=== PATIENT | male | born 1960 | race Caucasian/White ===

== ENCOUNTER 2021-10-06 07:52 | Outpatient (CLI) | payer BC, SELFPAY ==
[2021-10-06 11:59] LABS: Albumin* 4.5 g/dL (3.3-5.0)
[2021-10-06 12:00] LABS: Chloride* 105 mmol/L (96-114); Potassium* 4.9 mmol/L (3.6-5.1); Sodium* 139 mmol/L (135-149)
[2021-10-06 12:02] LABS: Bilirubin Total* 0.5 mg/dL (0.1-1.5); Carbon Dioxide* 27 mmol/L (20-32); Cholesterol* 143 mg/dL (90-199); Creatinine* 0.8 mg/dL (0.5-1.5); Estimated Glomerular Filt Rate 101 ml/min; Total Protein* 6.7 g/dL (6.0-8.3)
[2021-10-06 12:03] LABS: Alanine Aminotransferase* 50 U/L (4-50); Alkaline Phosphatase* 75 U/L (40-150); Aspartate Amino Transferase* 48 U/L (12-35); Blood Urea Nitrogen* 12 mg/dL (7-30); Calcium* 9.3 mg/dL (8.4-10.6); Glucose* 128 mg/dL (60-115); HDL Cholesterol* 46 mg/dL (>=40); LDL Cholesterol Calculated 77 mg/dL (<100); Triglycerides* 102 mg/dL (40-149)
== END 2021-10-06 07:53 | disposition home or self-care (01) ==
PROVIDERS: PCP Family Medicine; Visit Provider Family Medicine
DX: E78.5 Hyperlipidemia, unspecified (principal); R73.01 Impaired fasting glucose
CPT/HCPCS: 80053; 80061

== ENCOUNTER 2023-01-18 08:28 | Outpatient (CLI) | payer BC, SELFPAY | END 2023-01-18 08:29 | disposition home or self-care (01) | LOC: NFLDREF 20:50 | PROVIDERS: PCP Family Medicine; Referring Provider Family Medicine; Visit Provider Internal Medicine | DX: R30.0 Dysuria (principal); R31.9 Hematuria, unspecified | CPT/HCPCS: 87086 ==

== ENCOUNTER 2023-02-03 07:56 | Outpatient (CLI) | payer BC, SELFPAY | END 2023-02-03 07:57 | disposition home or self-care (01) | LOC: NFLDREF 02-10 07:37 | PROVIDERS: PCP Family Medicine; Referring Provider Family Medicine; Visit Provider Family Medicine | DX: E78.5 Hyperlipidemia, unspecified (principal); Z12.5 Encounter for screening for malignant neoplasm of prostate; Z13.6 Encounter for screening for cardiovascular disorders | CPT/HCPCS: 80053; 80061; 84153 ==

== ENCOUNTER 2023-03-24 07:45 | Outpatient (CLI) | payer BC, SELFPAY | END 2023-03-24 07:46 | disposition home or self-care (01) | LOC: NFLDREF 03-29 21:07 | PROVIDERS: PCP Family Medicine; Referring Provider Family Medicine; Visit Provider Family Medicine | DX: R73.01 Impaired fasting glucose (principal) | CPT/HCPCS: 82947 ==

== ENCOUNTER 2024-01-18 07:16 | Emergency (ER) | payer BC, SELFPAY ==
[2024-01-18 07:21] VITALS: BP 149/101; PULSE 70; RESP 18; TEMP 36.6; O2SAT 100; BMI 34.5
--- NOTE | 2024-01-18 07:29 | ED_ITS ---
HPI - Chest Pain General Time Seen by Provider: 07:30 Date Seen: 01/18/24 Chief Complaint: Chest Pain Stated Complaint: sharp burning chest pain, LT arm tingling numbness Time Seen by Provider: 01/18/24 07:29 Source: patient, RN notes reviewed and old records reviewed Mode of arrival: ambulatory Limitations: no limitations History of Present Illness HPI narrative: 63-year-old male who comes in today with chest pain. Patient notes off and on chest pain over the past week. Today also some pain in left shoulder blade area and left arm numbness which is new. Related Data Home Medications ?Medication ?Instructions ?Recorded ?Confirmed aspirin 81 mg tablet,delayed 81 mg PO QDAY 10/20/21 01/18/24 release Previous Rx's ?Medication ?Instructions ?Recorded lisinopril 10 mg tablet 10 mg PO QDAY #90 tabs 03/27/23 rosuvastatin 40 mg tablet 40 mg PO .HS #90 tabs 03/27/23 sildenafil 50 mg tablet 25 - 100 mg (0.5 - 2 x 50 mg) PO 03/27/23 QDAY PRN sexual activity #30 tabs niacin 500 mg tablet,extended 500 mg PO BID #180 tabs 05/19/23 release 24 hr Allergies Allergy/AdvReac Type Severity Reaction Status Date / Time codeine Allergy Mild behavioral Verified 01/18/24 07:26 changes diltiazem Allergy Mild Hives Verified 01/18/24 07:26 [facility] Medical History (Updated 01/18/24 @ 07:59 by Te Victoria MD) Skin cancer ?C44.90 - Unspecified malignant neoplasm of skin, unspecified (ICD-10) Hematuria ?R31.9 - Hematuria, unspecified (ICD-10) Dysuria ?R30.0 - Dysuria (ICD-10) History of squamous cell carcinoma ?Z85.89 - Personal history of malignant neoplasm of other organs and systems (ICD-10) History of sarcoidosis ?Z86.2 - Personal history of diseases of the blood and blood-forming organs and certain disorders involving the immune mechanism (ICD-10) History of hepatitis B virus infection ?Z86.19 - Personal history of other infectious and parasitic diseases (ICD- 10) History of basal cell carcinoma ?Z85.828 - Personal history of other malignant neoplasm of skin (ICD-10) Surgical History (Updated 10/01/21 @ 13:47 by Terry Wu) History of colonoscopy ?Z98.890 - Other specified postprocedural states (ICD-10) Social History (Updated 03/24/23 @ 09:36 by Tanya Nicholas ~ [facility]) What is your current living situation?: I presently have a place to live Problems where you live: declined to answer In the past 12 months, utilities in danger of being shut off: no In past 12 months, lack of transportation kept you from medical appts, meetings, work, or getting things needed for daily living: no In the past 12 mos, have been you worried that your food would run out before you had money to buy more?: declined to answer In the past 12 mos, the food you bought just didn't last and you didn't have money to buy more?: declined to answer Smoking Status: Never smoker How often does anyone, including family, friends and others, physically hurt you : decline to answer How often does anyone, including family, friends and others, insult or talk down to you: decline to answer How often does anyone, including family, friends and others, threaten you with harm: decline to answer How often does anyone, including family, friends and others, scream or curse at you: decline to answer Little interest or pleasure in doing things: not at all Feeling down, depressed, or hopeless: not at all Exam Narrative Exam Narrative: General: Well-developed and well-nourished, no acute distress Head: Atraumatic and normocephalic Eyes: Pupils are equal reactive, extraocular motions intact, conjunctiva clear ENT: External nose and ears are normal, posterior pharynx without erythema or exudate Neck: No midline cervical tenderness, full spontaneous range of motion the neck, trachea midline, no adenopathy Heart: Regular rate and rhythm no murmurs or thrills Lungs: Clear to auscultation bilaterally without wheezes or crackles Abdomen: Soft, nontender, nondistended with active bowel sounds Musculoskeletal: No tenderness, deformity, or edema Neurologic: Awake, alert, and oriented x3, no gross focal neurologic deficits, cranial nerves intact as tested Psych: Mood and affect are appropriate Skin: No rashes Const Vital Signs, click to edit/add: Vital Signs - 24 hr 01/18/24 07:21 Temperature 98 F Pulse Rate [Right Pulse Oximeter] 70 Respiratory Rate 18 Blood Pressure [Right Upper Arm] 149/101 H Pulse Oximetry 100 Oxygen Delivery Method Room Air Course Course ED Course: Patient seen examined, reviewed prior primary care office note from July 2023 w [facility] was for dysuria, patient was treated with ciprofloxacin at that time. Patient presents today with intermittent left-sided chest pain which he describes as sharp and like a pinch or burning that last for secondary to, has been going off and on for the last week. No associated shortness of breath, nausea, vomiting. Not associated with activity or breathing and patient has no cough. Today noticed pain in the left shoulder blade area and some numbness the left anterior arm going to the hand which made him come the emergency department. No falls or injury. No weakness. On exam here patient is finally stable, unable to reproduce chest pain. No trapezius tenderness, strength and sensation of the left arm intact. Chest pain is atypical for acute coronary syndrome, could be more pleuritic, labs including D-dimer ordered. Shoulder pain with tingling in the arm in a radicular pattern most consistent with cervical or thoracic radiculopathy. Chest x-ray ordered to evaluate for intra thoracic pathology as well. If this is negative, patient be discharged and have outpatient follow-up, consult physical therapy if symptoms persist. EKG independently interpreted by me performed at 7:30 a.m. demonstrates sinus rhythm rate 69, no acute ST elevations or depressions, normal intervals, normal axis, QTC 441, OH 136, no prior for comparison. Signout to oncoming provider at change of shift pending labs and disposition. Vital Signs Vital signs: Initial Vital Signs Temperature 98 F 01/18/24 07:21 Temperature Source Temporal Artery Scan 01/18/24 07:21 Pulse Rate 70 01/18/24 07:21 Pulse Rhythm Regular 01/18/24 07:21 Pulse Strength 3+ Normal 01/18/24 07:21 Respiratory Rate 18 01/18/24 07:21 Blood Pressure 149/101 H 01/18/24 07:21 Blood Pressure Mean 117 H 01/18/24 07:21 Blood Pressure Position Sitting 01/18/24 07:21 Pulse Oximetry 100 01/18/24 07:21 Oxygen Delivery Method Room Air 01/18/24 07:21 Vital Signs Temperature 98 F 01/18/24 07:21 Pulse Rate 70 01/18/24 07:21 Respiratory Rate 18 01/18/24 07:21 Blood Pressure 149/101 H 01/18/24 07:21 Pulse Oximetry 100 01/18/24 07:21 Oxygen Delivery Method Room Air 01/18/24 07:21 Temperature 98 F 01/18/24 07:21 Pulse Rate 70 01/18/24 07:21 Respiratory Rate 18 01/18/24 07:21 Blood Pressure 149/101 H 01/18/24 07:21 Pulse Oximetry 100 01/18/24 07:21 Oxygen Delivery Method Room Air 01/18/24 07:21 Discharge Plan Discharge Clinical Impression: Atypical chest pain, Cervical radiculopathy Condition: Stable Instructions: Cervical Radiculopathy (ED), Noncardiac Chest Pain (ED) Prescriptions: No Action aspirin 81 mg tablet,delayed release (DR/EC) 81 mg PO QDAY lisinopril 10 mg tablet 10 mg PO QDAY Qty: 90 3RF rosuvastatin 40 mg tablet 40 mg PO .HS Qty: 90 3RF sildenafil 50 mg tablet 25 - 100 mg PO QDAY PRN (Reason: sexual activity) Qty: 30 11RF Rx Instructions: administer 30 minutes to 4 hours before activity niacin 500 mg tablet extended release 24 hr 500 mg PO BID Qty: 180 0RF Follow Up/Referrals: Cristian Cordero MD [Primary Care Provider] -
--- NOTE | 2024-01-18 07:40 | XR_ITS ---
Patient: GM KAY Facility:?[facility] Patient ID:?[id number] Site Patient ID:?[id number]. Site :?[id number] Study:?XRay-Chest 2 VIEW-01/18/2024 7:52:57 AM Ordering Physician:Germán Tiwari Final Report: INDICATION: Chest pain COMPARISON: None TECHNIQUE: PA and lateral views of the chest were acquired FINDINGS: TUBES AND LINES: None. HEART AND MEDIASTINUM: The heart size is normal. The mediastinal contour appears normal for patient age. LUNGS AND PLEURAL SPACES: The lungs appear normal.The pleural spaces are unremarkable. OSSEOUS STRUCTURES: Age-appropriate appearance. No acute focal finding. IMPRESSION: No evidence of active pulmonary disease. Dictated by Nicolas Villatoro MD @ 01/18/2024 7:55:30 AM Signed by:?Nicolas Villatoro MD @01/18/2024 7:55:30 AM (Electronic Signature)
[2024-01-18 08:00] VITALS: BP 138/69
[2024-01-18 08:10] LABS: Basophils Absolute Auto 0.03 K/uL (0.00-0.30); Basophils Percent Auto 0.6 % (0.0-3.0); Eosinophils Absolute Auto 0.12 K/uL (0.00-0.50); Eosinophils Percent Auto 2.2 % (0.0-7.0); Hemoglobin* 13.5 gm/dL (13.5-17.5); Immature Granulocytes Abs Auto 0.01 K/uL (0.00-0.30); Immature Granulocytes Pct Auto 0.2 %; Lymphocytes Absolute Auto 1.71 K/uL (0.90-2.90); Lymphocytes Percent Auto 31.5 % (20-44); Mean Corpuscular HGB Conc 34 gm/dL (32-36); Mean Corpuscular Hemoglobin 31 pg (26-34); Mean Corpuscular Volume 92 fL (80-100); Monocytes Percent Auto 12.5 % (0.0-11.0); Neutrophils Absolute Auto 2.87 K/uL (1.7-7.0); Platelet Count* 157 K/uL (140-440); RDW Coefficient of Variation % 11.9 % (11.5-15.5); Red Blood Count 4.36 m/uL (4.30-5.90); White Blood Count* 5.42 K/uL (4.50-11.00)
--- OUTSIDE RECORDS SUMMARY | 2024-01-18 08:10 | XMS_ITS | Clinical Summary ---
Author Organization [facility] Address [place], [place] [address] Care Team Providers Care Supervisor Airplane Flight Attendant Name Role Phone Cristian Cordero MD Primary Care Provider [phone] Allergies No known active allergies Medications Medication Sig Dispensed Refills Start Date End Date Status lisinopriL (PRINIVIL; ZESTRIL) 10 mg tablet 10 mg. 08/02/2019 Act kera rosuvastatin (CRESTOR) 20 mg tablet 20 mg. 08/02/2019 Active niacinamide 500 mg tablet 500 mg. 09/10/2019 Active sildenafiL, pulm.hypertension, (REVATIO) 20 mg tablet 20 mg. 09/09/2019 Ac tive aspirin (ECOTRIN) 81 mg enteric coated tablet Take 1 tablet by mouth once daily with a meal. 0 09/17/2019 Active Active Problems Problem Noted Date Diagnosed Date Essential (primary) hypertension 09/18/2019 Hyperlipidemia, unspecified 09/18/2019 History of basal cell carcinoma (BCC) of skin Immunizations Name Administration Dates Next Due Measles 11/06/1979,07/27/1976 Oral Polio Vaccine 10/09/1974 Pneumococcal Poly,23-Valent (Pneumovax) 11/15/19 18 Tdap 05/03/2010 Zoster (Shingrix-RZV, recombinant) 01/28/2019, Family History Medical History Relation Name Comments Diabetes Brother 1 Diabetes Brother 2 Cancer Father Esophageal cancer Mother Hypertension Mother Relation Name Status Comments Brother 1 Brother 2 Father Mother Social History Tobacco Use Types Packs/Day Years Used Date Smoking Tobacco: Never Smokeless Tobacco: Never Alcohol Use Standard Drinks/Week Comments Yes 0 (1 standard drink = 0.6 oz pur e alcohol) 11 PHQ-2 Answer Date Recorded PHQ-2 TOTAL SCORE 0 09/17/2019 Social Connections Answer Date Recorded Frequency of Communication with Friends and Fami ly Not on file 03/20/2021 Financial Resource Strain Answer Date R ecorded Difficulty of Paying Living Expenses Not on file 03/20/2021 Difficulty of Paying Living Expenses Not on file 03/20/2021 Sex and Gender Information Value Date Recorded Sex Assigned at Not on file Gender Identity Not on file Sexual Orientation Not on file Obstetrics History Last Filed Vital Signs Vital Sign Reading Time Taken Comments Blood Pressure 116/80 09/18/2019 8:12 AM CDT Pulse 72 09/18/2019 8:12 AM CDT Temperature - - Respiratory Rate - - Oxygen Saturation - - Inhaled Oxygen Concentration - - Weight 93.4 kg (206 lb) 09/18/2019 8:12 AM CDT Height 169 cm (5' 6.54) 09/18/2019 8:12 AM CDT Body Mass Index 32.72 09/18/2019 8:12 AM CDT Plan of Treatment Health Maintenance Due Date Last Done Comments Colonoscopy through age 75 2006 Lipids for age 45-75 2006 Tetanus booster 05/03/2020 05/03/2010 BMI (ht and wt on same day) for age 18+ 09/17/2020 09/18/2019 Depression screening for age 12+ 09/17/2020 09/18/2019, 09/17/2019 COVID-19 vaccine series (2023- season) 2023 Influenza for age 50-64 11/19/2023 Tdap Completed 05/03/2010 Pneumococcal series for age 6-64 Aged Out 11/14/2017 No longer eligible b ased on patient's age to complete this topic Zoster (shingles) series for age 50+ Completed 01/28/2019, 11/14/2017 Hepatitis C screening for ag e 18-79 Completed 09/18/2019 HIV for age 15-65 Completed 11/26/2019, 09/18/2019 Procedures Procedure Name Priority Date/Time Associated Diagnosis Comments ANTI HIV 1/2 Routine 11/26/2019 9:56 AM CDT Routine screening for STI (sexually transmitted infection) ANTI HCV Routine 09/18/2019 8:50 AM CDT Routine screening for STI (sexually transmitted infection) from Last 3 Months or Most Recently Relevant to Health Maintenance Results * ANTI HIV 1/2 (11/26/2019 9:56 AM CDT) HIV-1/HIV-2 ANTIBODY Non-Reacti ve Non-Reacti ve 11/26/2019 8:52 PM CDT [facility] Comment:HIV-1 p24 and HIV-1/ HIV-2 Ab not detected. Blood BLOOD SPECIMEN / Unknown Venipuncture / Unknown 11/26/2019 9:56 AM CDT 11/26/2019 9:56 AM CDT Derick Heard MD [facility] [address] [place] [address], * ANTI HCV (09/18/2019 8:50 AM CDT) HEPATITIS C ANTIBODY Non-React kera Non-React kera 09/18/2019 2:14 PM CDT [facility] Comment:Antibodies to HCV no t detected; does not exclude the possibility of exposure to HCV. Blood BLOOD SPECIMEN / Unknown Venipuncture / Unknown 09/18/2019 8:50 AM CDT 09/18/2019 8:50 AM CDT Derick Heard MD [facility] [address] [place] [address], from Last 3 Months or Most Recently Relevant to Health Maintenance Care Teams Supervisor Airplane Flight Attendant Relationship Specialty Start Date End Date Cristian Cordero MD [address] [place] [id number] PCP - General Family Practice 09/18/19
--- OUTSIDE RECORDS SUMMARY | 2024-01-18 08:10 | XMS_ITS | Clinical Summary ---
Author Organization [employer] Address [address] [place] [phone] Phone Care Team Providers Care Boardinghouse Keeper Name Role Phone Unavailable Primary Care Provider Unavailabl e Source Comments [employer] is fully rolled out on [employer]. Last update 08/22/08.[employer] Allergies Active Allergy Reactions Criticality Noted Date Comments Amoxicillin-Pot Clavulanate Rash 05/07/19 10 PT thinks his reaction was to another medication not this one. Morphine And Codeine Rash Medium 02/11/2009 Medications * Be aware that medications may not be up to date as of this document. Always verify current medications with patient. Medication Sig Dispensed Refills Start Date End Date Status lisinopril (PRINIVIL; ZESTRIL) 5 mg oral tablet Take 1 tablet (5 mg) by mouth at bedtime. 3 10/04/2017 Active rosuvastatin (CRESTOR) 20 mg oral tablet Take 1 tablet (20 mg) by mouth daily. 0 10/19/2017 Active Cholecalciferol (VITAMIN D ORAL) Take by mouth. Acti ve aspirin (ASA EC) 81 mg oral tablet Take 81 mg by mouth daily. Active sildenafil (REVATIO) 20 mg oral tablet 40-100 MG PO DAILY PRN Take 30-60 min prior to planned sexual activity. 07/24/2019 Active niacinamide (DAWNA-ON NIACINAMIDE) 500 mg oral tablet Take 1 tablet (500 mg) by mouth twice daily. 01/26/2023 Active Active Problems No known active problems Social History Tobacco Use Types Packs/Day Years Used Date Smoking Tobacco: Never Smokeless Tobacco: Never Alcohol Use Standard Drinks/Week Comments Yes 12.5 (1 standard drink = 0.6 oz pure alcohol) Sex and Gender Information Value Date Recorded Sex Assigned at Male 06/20/2018 12:01 PM CDT Gender Identity Male 06/20/2018 12:01 PM CDT Sexual Orientation Howard 10/21/2021 9: 17 PM CDT Plan of Treatment Health Maintenance Due Date Last Done Comments CT Colonography 1960 Colonoscopy 1960 Colorectal Cancer Screening 1960 Dental Oral Exam 1960 Dental Prophylaxis 1960 Dental X-Ray: Bitewings 1961 FIT/Cologuard 1961 Hepatitis C Screening 1960 Sigmoidoscopy 1961 iFOB/FIT 1961 Lipid Screening 1962 Periodontal Maintenance 08/06/1975 PREVENTATIVE VISIT 08/06/1979 HEALTH MAINTENANCE PROTOCOL 1980 Imm: DTaP/Tdap (3 - Td or Tdap) 04/22/2022 10/20/2021, 05/03/2010 Imm: COVID-19 ( season) 2023 10/01/2021, 02/08/2021, 04/20/2020, Additional history exists Imm: Flu (#1) 11/19/2023 01/05/2021 Imm: Pneumonia Peds or At-Risk less than 65 years Aged Out 11/14/2017 No longer prema gible based on patient's age to complete this topic Imm: Zoster Completed 01/28/2019, 11/14/2017 HIV Screening Completed 02/02/2023, 06/2021, 01/15/2020, Additional history exists Imm: HPV Aged Out No longer eligi ble based on patient's age to complete this topic Imm: HepA Aged Out No longer eligi ble based on patient's age to complete this topic Imm: HepB Aged Out No longer eligi ble based on patient's age to complete this topic Imm: Hib Aged Out No longer eligi ble based on patient's age to complete this topic Imm: Meningitis Aged Out No longer el igible based on patient's age to complete this topic Procedures Procedure Name Priority Date/Time Associated Diagnosis Comments HIV 1 AND HIV 2 SCREEN Routine 02/02/2023 Screening for HIV (human immunodeficiency virus) from Last 3 Months or Most Recently Relevant to Health Maintenance Results * HIV 1 AND HIV 2 SCREEN (02/02/2023) HIV1&2 Nonreactive Nonreactive [facility] Blood specimen (specimen) 02/02/2023 Katelin Devine APRN, [employer] [facility] [address] [place] [address] from Last 3 Months or Most Recently Relevant to Health Maintenance
--- OUTSIDE RECORDS SUMMARY | 2024-01-18 08:10 | XMS_ITS | Referral Summary ---
Author Organization [employer] Address [address] [place] [id number] Phone Care Team Providers Care Shoe Dyer Name Role Phone Unavailable Primary Care Provider Unavailabl e Source Comments [employer] [facility] is fully rolled out on [employer]. Last update 08/22/08.[employer] Allergies Active Allergy Reactions Criticality Noted Date [...] 9: 17 PM CDT Plan of Treatment Not on file Procedures Procedure Name Priority Date/Time Associated Diagnosis Comments HIV 1 AND HIV 2 SCREEN Routine 02/02/2023 Screening for HIV (human immunodeficiency virus) from Last 3 Months or Most Recently Relevant to Health Maintenance Results * HIV 1 AND HIV 2 SCREEN (02/02/2023) HIV1&2 Nonreactive Nonreactive [facility] Blood specimen (specimen) 02/02/2023 Katelin Devine APRN, DIGITAL ASSET MANAGER LAB[facility]AT[facility] [address] [place] [address] from Last 3 Months or Most Recently Relevant to Health Maintenance
[2024-01-18 08:12] LABS: Slide Review Reflex No
[2024-01-18 08:24] LABS: Chloride* 104 mmol/L (96-114); Potassium* 4.1 mmol/L (3.6-5.1); Sodium* 136 mmol/L (135-149)
[2024-01-18 08:27] LABS: Anion Gap 8 mEq/L (7-15); Blood Urea Nitrogen* 20 mg/dL (7-30); Carbon Dioxide* 24 mmol/L (20-32); Creatinine* 0.6 mg/dL (0.5-1.5); Est. Creatinine Clearance* 71.61; Estimated Glomerular Filt Rate 109 ml/min; Glucose* 127 mg/dL (60-115)
[2024-01-18 08:28] LABS: Magnesium* 1.9 mg/dL (1.5-2.6)
[2024-01-18 08:29] LABS: D Dimer Quantitative* 0.38 ug/ml (0.00-0.50)
== END 2024-01-18 09:01 | disposition home or self-care (01) ==
PROVIDERS: Emergency Provider Family Medicine; PCP Family Medicine
DX: R07.9 Chest pain, unspecified (principal); M54.12 Radiculopathy, cervical region
CPT/HCPCS: 36415; 71046; 80048; 83735; 84484; 85025; 85379; 93005; 99284

== ENCOUNTER 2024-03-19 06:32 | Outpatient (CLI) | payer BC, SELFPAY ==
--- NOTE | 2024-03-19 08:01 | W.ANESCHARGE ---
Anesthesia Charges Start Date/Time Anesthesia Start Date: 03/19/24 Anesthesia Start Time: 07:25 Stop Date/Time Anesthesia Stop Date: 03/19/24 Anesthesia Stop Time: 07:57
== END 2024-03-19 06:33 | disposition home or self-care (01) ==
LOC: OP CLINIC 06:33
PROVIDERS: PCP Family Medicine; Visit Provider Surgery
DX: Z12.11 Encounter for screening for malignant neoplasm of colon (principal); D12.3 Benign neoplasm of transverse colon; D12.8 Benign neoplasm of rectum; K57.30 Diverticulosis of large intestine without perforation or abscess without bleeding; Z86.0100 Personal history of colon polyps, unspecified
CPT/HCPCS: 00811; 45385; 88305; J2405; J2704

== ENCOUNTER 2024-09-19 07:29 | Outpatient (CLI) | payer BC, SELFPAY | END 2024-09-19 07:30 | disposition home or self-care (01) | LOC: NFLDREF 09-22 07:04 | PROVIDERS: PCP Family Medicine; Referring Provider Family Medicine; Visit Provider Family Medicine | DX: I10 Essential (primary) hypertension (principal); E78.5 Hyperlipidemia, unspecified; R73.03 Prediabetes; Z12.5 Encounter for screening for malignant neoplasm of prostate | CPT/HCPCS: 80053; 80061; 82043; 82570; G0103 ==

== ENCOUNTER 2025-02-24 08:06 | Emergency (ER) | payer OTHER, SELFPAY ==
[2025-02-24] VITALS (17 sets, daily range): BP systolic 108–146; BP diastolic 75–96; PULSE 66–74; RESP 9–25; TEMP 36.5; O2SAT 94–99; BMI 29.8
--- NOTE | 2025-02-24 08:10 | ED.GENADULT ---
HPI - General Adult General Date Seen: 02/24/25 Chief complaint: Arrhythmia/Palpitations Stated complaint: Racing heartrate Time Seen by Provider: 02/24/25 08:10 History of Present Illness HPI narrative: 64-year-old male with a history of hypertension, hyperlipidemia, basal cell carcinoma, ED, and current diagnosis is UTI ( on Cipro since Monday). He presents to the ER today with palpitations and dizziness. He notes that he has had intermittent palpitations that happen sporadically for over the test tender 20 years. It sounds like he has had some initial evaluations for them and his doctors told him that when the palpitations have been that he should just bear down. Typically the palpitations are infrequent, happening once every few weeks and tender to be very brief, lasting only a couple of seconds. He does recall that he apparently did have an EKG done by a doctor in [place] but does not recall what arrhythmia was discovered. When I question him about SVT or AFib, he just does not remember. He also has a history of hypertension, dyslipidemia, and was diagnosed with diabetes last spring. Since that diagnosis he is adopted lifestyle changes and has been doing intermittent fasting. As result he has lost about 60 lb, intentionally. With that weight loss is labs improve him improved. His doctor is very pleased with his decreased A1c. He is not requiring any medications to manage his sugar. He notes that for the past few days he has had increased frequency of palpitations. He has had at least 2 or 3 episodes per day since Monday, Monday, and today. This morning he got up at his usual time at about 445 minutes was doing his usual morning routine. He was in the bathroom preparing to get in the shower at perhaps 530 or so when he had a particularly bad episode of palpitations. His heart was racing and pounding harder and faster than usual and he got very lightheaded. His vision started to grow paulino. He does not have any chest pain. No shortness of breath. Not actually black out. The episode lasted about 10 seconds or so and then resolve spontaneously. He did not have to do a Valsalva to make it go away. After that he was able to complete his morning routine. He had 2 more episodes of palpitations while he was driving his car on the way to work. They were less intense than the 1st 1. He is not having any other symptoms. No recent chest pain. No cough. No shortness of breath. No swelling in his legs. No recent vomiting or diarrhea. No fevers. No abdominal pain. Normal appetite. He does intermittent fasting and only eats 4 hours out of each 24 hour cycle. That is been stable habit for him for the past 6 months or so. No change in his diet. No alcohol. No tobacco. No stimulants. He is not using any G LP 1 inhibitors or any phentermine for weight loss. Related Data Home Medications ?Medication ?Instructions ?Recorded ?Confirmed aspirin 81 mg tablet,delayed 81 mg PO QDAY 10/20/21 02/24/25 release Previous Rx's ?Medication ?Instructions ?Recorded niacin 500 mg tablet,extended 500 mg PO BID #180 tabs 06/10/24 release 24 hr lisinopril 10 mg tablet 10 mg PO DAILY #90 tabs 09/23/24 rosuvastatin 40 mg tablet 40 mg PO .HS #90 tabs 09/23/24 sildenafil 50 mg tablet 25 - 100 mg (0.5 - 2 x 50 mg) PO 09/23/24 QDAY PRN sexual activity #30 tabs niacinamide 500 mg tablet 500 mg PO BID #180 tabs 12/16/24 ciprofloxacin HCl 250 mg tablet 250 mg PO BID 5 days #10 tabs 02/22/25 (Cipro) Allergies Allergy/AdvReac Type Severity Reaction Status Date / Time codeine Allergy Mild behavioral Verified 02/22/25 09:53 changes diltiazem Allergy Mild Hives Verified 02/22/25 09:53 [facility] Medical History (Updated 02/24/25 @ 10:56 by Joaquim Tsang MD) Palpitations ?R00.2 - Palpitations (ICD-10) Foot fracture, left ?S92.902A - Unspecified fracture of left foot, initial encounter for closed fracture (ICD-10) Skin cancer ?C44.90 - Unspecified malignant neoplasm of skin, unspecified (ICD-10) History of squamous cell carcinoma ?Z85.89 - Personal history of malignant neoplasm of other organs and systems (ICD-10) History of sarcoidosis ?Z86.2 - Personal history of diseases of the blood and blood-forming organs and certain disorders involving the immune mechanism (ICD-10) History of hepatitis B virus infection ?Z86.19 - Personal history of other infectious and parasitic diseases (ICD-10) History of basal cell carcinoma ?Z85.828 - Personal history of other malignant neoplasm of skin (ICD-10) Surgical History History of colonoscopy ?Z98.890 - Other specified postprocedural states (ICD-10) Social History (Updated 09/23/24 @ 08:56 by Maddie Nugent[facility] What is your current living situation?: I presently have a place to live Problems where you live: declined to answer In the past 12 months, utilities in danger of being shut off: no In past 12 months, lack of transportation kept you from medical appts, meetings, work, or getting things needed for daily living: no In the past 12 mos, have been you worried that your food would run out before you had money to buy more?: never true In the past 12 mos, the food you bought just didn't last and you didn't have money to buy more?: never true Smoking Status: Never smoker How often do you have a drink containing alcohol: never How often do you have six or more drinks on one occasion: Never AUDIT-C Alcohol total score: 0 Non-prescribed substance use: denies use How often does anyone, including family, friends and others, physically hurt you: never How often does anyone, including family, friends and others, insult or talk down to you: never How often does anyone, including family, friends and others, threaten you with harm: never How often does anyone, including family, friends and others, scream or curse at you: never service: No Exam Narrative: Exam Narrative: Constitutional: Appears well-developed and well-nourished. Alert. Conversant. Non toxic. HENT: Head: Atraumatic. Nose: Nose normal. Mouth/Throat: Oral mucosa is clear and moist. no trismus. Pharynx normal. Tonsils symmetric. No tonsillar enlargement, erythema, or exudate. Eyes: Conjunctivae normal. EOM normal. Pupils equal, round, and reactive to light. No scleral icterus. Neck: Normal range of motion. Neck supple. No tracheal deviation present. No JVD Cardiovascular: Normal rate, regular rhythm. No gallop. No friction rub. No murmur heard. Symmetric radial artery pulses Pulmonary/Chest: Effort normal. No stridor. No respiratory distress. No wheezes. No rales. No rhonchi . No tenderness. Abdominal: Soft. Bowel sounds normal. No distension. No mass. No tenderness. No rebound. No guarding. Musculoskeletal: RUE: Normal range of motion. No tenderness. No deformity LUE: Normal range of motion. No tenderness. No deformity RLE: Normal range of motion. No edema. No tenderness. No deformity LLE: Normal range of motion. No edema. No tenderness. No deformity Neurological: Alert and oriented to person, place, and time. Normal strength. CN II-VII intact. No sensory deficit. GCS eye subscore is 4. GCS verbal subscore is 5. GCS motor subscore is 6. Normal coordination Skin: Skin is warm and dry. No rash noted. No pallor. Normal capillary refill. Psychiatric: Normal mood. Normal affect. polite. Does endorse lot of stress related to his work lately. Const: Vital Signs, click to edit/add: Vital Signs - 24 hr 02/24/25 08:13 02/24/25 08:55 02/24/25 08:56 Temperature 97.7 F Pulse Rate 69 66 Pulse Rate [Pulse Oximeter] 72 Respiratory Rate 20 15 Blood Pressure 131/86 Blood Pressure [Ri ght Upper Arm] 146/93 H Pulse Oximetry 99 94 95 Oxygen Delivery [facility] Room Air 02/24/25 09:00 02/24/25 09:02 02/24/25 09:29 Temperature Pulse Rate 74 Pulse Rate [Pulse Oximeter] Respiratory Rate 23 16 Blood Pressure 131/88 144/77 H Blood Pressure [Ri ght Upper Arm] Pulse Oximetry Oxygen Delivery [facility] 02/24/25 09:31 02/24/25 09:45 02/24/25 10:00 Temperature Pulse Rate Pulse Rate [Pulse Oximeter] Respiratory Rate 16 19 Blood Pressure 132/75 Blood Pressure [Ri ght Upper Arm] Pulse Oximetry Oxygen Delivery [facility] 02/24/25 10:02 02/24/25 10:15 02/24/25 10:30 Temperature Pulse Rate Pulse Rate [Pulse Oximeter] Respiratory Rate 9 L 18 25 H Blood Pressure 114/78 Blood Pressure [Ri ght Upper Arm] Pulse Oximetry Oxygen Delivery [facility] 02/24/25 10:32 12/08/25 10:45 02/24/25 11:00 Temperature Pulse Rate Pulse Rate [Pulse Oximeter] Respiratory Rate 10 L 13 12 Blood Pressure 108/80 Blood Pressure [Ri ght Upper Arm] Pulse Oximetry Oxygen Delivery Me thod 02/24/25 11:02 02/24/25 11:15 Temperature Pulse Rate Pulse Rate [Pulse Oximeter] Respiratory Rate 16 11 L Blood Pressure 134/96 H Blood Pressure [Ri ght Upper Arm] Pulse Oximetry Oxygen Delivery Me thod Course Course ED Course: Stable. No further events. Vital Signs Vital signs: Initial Vital Signs Respiratory Effort Normal 02/24/25 08:08 Respiratory Depth Normal 02/24/25 08:08 Vital Signs Temperature 97.7 F 02/24/25 08:13 Pulse Rate 72 02/24/25 08:13 Respiratory Rate 20 02/24/25 08:13 Blood Pressure 146/93 H 02/24/25 08:13 Pulse Oximetry 99 02/24/25 08:13 Oxygen Delivery Method Room Air 02/24/25 08:13 Temperature 97.7 F 02/24/25 08:13 Pulse Rate 74 02/24/25 09:02 Respiratory Rate 11 L 02/24/25 11:15 Blood Pressure 134/96 H 02/24/25 11:02 Pulse Oximetry 95 02/24/25 08:56 Oxygen Delivery Method Room Air 02/24/25 08:13 Medical Decision Making MDM Narrative Medical decision making narrative: This patient presents for evaluation of palpitations. Initial ECG shows normal sinus rhythm and no dysrhythmogenic abnormality such as WPW, prolonged QT, Brugada syndrome, and no ischemia. monitoring coordinator while the patient here in the ER showed no dysrhythmia or ectopy. A broad differential diagnosis was considered including SVT, Atrial fibrillation, ventricular arrhythmia, thyroid disease, acute electrolyte abnormality, drugs/medications, caffeine intake or other stimulants, medication side effect, anemia, heart disease, PE, among others. The workup and exam here in ED shows not specific cause of the patient's palpitations, and no risks factors to warrant admission. Clinical judgement suggests that supportive outpatient management is indicated. Will arrange an outpatient Holter monitor and recommend follow up with PCP.. Lab Data Labs: Lab Results 02/24/25 02/24/25 Range/Units 08:45 08:58 WBC 5.96 (4.50-11.00) K/uL RBC 4.70 (4.30-5.90) m/uL Hgb 14.9 (13.5-17.5) gm/dL Hct 43.8 (37.0-53.0) % MCV 93 (80-100) fL MCH 32 (26-34) pg MCHC 34 (32-36) gm/dL RDW Coeff of Darlyn 11.8 (11.5-15.5) % Plt Count 187 (140-440) K/uL Neut % (Auto) 63.4 (42.0-72.0) % Lymph % (Auto) 24.8 (20-44) % Wright % (Auto) 8.7 (0.0-11.0) % Eos % (Auto) 2.2 (0.0-7.0) % Baso % (Auto) 0.7 (0.0-3.0) % Neut # (Auto) 3.78 (1.7-7.0) K/uL Lymph # (Auto) 1.48 (0.90-2.90) K/uL Wright # (Auto) 0.50 (0.00-0.90) K/UL Eos # (Auto) 0.13 (0.00-0.50) K/uL Baso # (Auto) 0.04 (0.00-0.30) K/uL Abs Immat Gran (auto) 0.01 (0.00-0.30) K/uL Imm/Tot Granulo (auto) 0.2 % Sodium 137 (135-149) mmol/L Potassium 4.8 (3.6-5.1) mmol/L Chloride 99 (96-114) mmol/L Carbon Dioxide 25 (20-32) mmol/L Anion Gap 13 (7-15) mEq/L BUN 13 (7-30) mg/dL Creatinine 0.7 (0.5-1.5) mg/dL Estimated Creat Clear 70.69 Estimated GFR 104 ml/min Glucose 120 H (60-115) mg/dL Calcium 9.6 (8.4-10.6) mg/dL Magnesium 2.0 (1.5-2.6) mg/dL POC Troponin I High Sensi < 2.9 L (2.9-28.0) pg/mL TSH 2.840 (0.270-4.200) uIU/mL ECG Data Interpretation: Normal sinus rhythm rate 65 ME interval 138. Normal QRS axis. Voltage criteria for LVH with tall R-wave in lead aVL. No ST segment elevation or depression. Nonspecific T-wave flattening involving leads 3 and AVF. Artifact in baseline of leads AVR, aVL, AVF. QT 426, QTC 443 Discharge Plan Discharge Clinical Impression: Heart palpitations Patient Disposition: Home, Self-Care Condition: Stable Instructions: Heart Palpitations (DC) Additional Instructions: As we discussed, so far your workup for the palpitations does not reveal any definitive cause. It is very important for you to where the heart monitor for the next couple of weeks. Please recheck with your primary care provider, Dr. Kan after completing the heart monitor. Come back to the ER right away if you have any concerns, or worsening symptoms such as another episode of severe palpitations, episodes of palpitations that will not go away, or if you faint, or other new symptoms such as chest pain. for now please continue on your regular medications. Prescriptions: No Action aspirin 81 mg tablet,delayed release (DR/EC) 81 mg PO QDAY ciprofloxacin HCl [Cipro] 250 mg tablet 250 mg PO BID 5 Days Qty: 10 0RF lisinopril 10 mg tablet 10 mg PO DAILY Qty: 90 3RF rosuvastatin 40 mg tablet 40 mg PO .HS Qty: 90 3RF sildenafil 50 mg tablet 25 - 100 mg PO QDAY PRN (Reason: sexual activity) Qty: 30 11RF Rx Instructions: administer 30 minutes to 4 hours before activity niacin 500 mg tablet extended release 24 hr 500 mg PO BID Qty: 180 0RF niacinamide 500 mg tablet 500 mg PO BID Qty: 180 3RF Rx Instructions: Take 1 tablet (500 mg) by mouth twice daily. Follow Up/Referrals: Cristian Cordero MD [Primary Care Provider, Family Practice] Stand Alone Forms: TellMi Info Instructions
--- OUTSIDE RECORDS SUMMARY | 2025-02-24 08:24 | XMS_ITS | Clinical Summary ---
Author Organization [facility] Address [address] [place] [id number] Care Team Providers Care Mirror Department Supervisor Name Role Phone Cristian Cordero MD Primary Care Provider [phone] Allergies No known active allergies Medications lisinopriL (PRINIVIL; ZESTRIL) 10 mg tablet 10 mg. 08/02/2019 Active rosuvastatin (CRESTOR) 20 mg tablet 20 mg. 08/02/2019 Active niacinamide 500 mg tablet 500 mg. 09/10/2019 Active sildenafiL, pulm.hypertensio n, (REVATIO) 20 mg tablet 20 mg. 09/09/2019 Active aspirin (ECOTRIN) 81 mg enteric coated tablet Take 1 tablet by mouth once daily with a meal. 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 Gender Identity Not on file Sexual Orientation Not on file Last Filed Vital Signs Vital Sign Reading [...] 75 2006 Lipids for age 45-75 2006 Pneumococcal series for age 50+ (2 of 2 - PCV) 11/14/2018 11/14/2017 Tetanus booster 05/03/2020 05/03/2010 BMI (ht and wt on same day) for age 18+ 09/17/2020 0 09/18/2019 Depression screening for age 12+ 09/17/2020 09/18/19 20, 09/17/2019 Hepatitis B series for 19+ ( 1 of 3 - Risk 3-dose series) 2021 COVID-19 vaccine series (2024- season) 2024 Influenza Vaccine (#1) 2024 RSV vaccine for adults or pr egnancy (1 - 1-dose 75+ series) 2036 Zoster (shingles) series for age 50+ Completed 01/18, 11/14/2017 Hepatitis C screening for age 18-79 Completed 09/17 HIV for age 15-65 Completed 11/26/2019, 09/18/2019 [...] ve Non-Reacti ve 11/26/2019 8:52 PM CDT [facility] Comment:HIV-1 p24 and HIV-1/ HIV-2 Ab not detected. Blood BLOOD SPECIMEN / Unknown Venipuncture / Unknown 11/26/2019 9:56 AM CDT 11/26/2019 9:56 AM CDT Derick Heard MD SEND OUTS Final R esult Performing Organization Address City/[facility]/ZIP Co de Phone Number [facility] [address] * ANTI HCV (09/18/2019 8:50 AM CDT) HEPATITIS C ANTIBODY Non-React kera Non-React kera 09/18/2019 2:14 PM CDT [facility] Comment:Antibodies to HCV no t detected; does not exclude the possibility of exposure to HCV. Blood BLOOD SPECIMEN / Unknown Venipuncture / Unknown 09/18/2019 8:50 AM CDT 09/18/2019 8:50 AM CDT Derick Heard MD SEND OUTS Final R esult [facility] [address] [place] [address], from Last 3 Months or Most Recently Relevant to Health Maintenance Insurance [employer] Care Teams Mirror Department Supervisor Relationship Specialty Start Date End Date Cristian Cordero MD [address] [place] [id number] PCP - General Family Practice 09/18/19
[2025-02-24 09:09] LABS: Hematocrit* 43.8 % (37.0-53.0); Hemoglobin* 14.9 gm/dL (13.5-17.5); Immature Granulocytes Abs Auto 0.01 K/uL (0.00-0.30); Immature Granulocytes Pct Auto 0.2 %; Lymphocytes Absolute Auto 1.48 K/uL (0.90-2.90); Mean Corpuscular HGB Conc 34 gm/dL (32-36); Mean Corpuscular Hemoglobin 32 pg (26-34); Mean Corpuscular Volume 93 fL (80-100); RDW Coefficient of Variation % 11.8 % (11.5-15.5); Red Blood Count* 4.70 m/uL (4.30-5.90); White Blood Count* 5.96 K/uL (4.50-11.00)
[2025-02-24 09:11] LABS: Slide Review Reflex No
[2025-02-24 09:23] LABS: Chloride* 99 mmol/L (96-114); Potassium* 4.8 mmol/L (3.6-5.1); Sodium* 137 mmol/L (135-149)
[2025-02-24 09:26] LABS: Anion Gap 13 mEq/L (7-15); Blood Urea Nitrogen* 13 mg/dL (7-30); Calcium* 9.6 mg/dL (8.4-10.6); Carbon Dioxide* 25 mmol/L (20-32); Creatinine* 0.7 mg/dL (0.5-1.5); Est. Creatinine Clearance* 70.69; Estimated Glomerular Filt Rate 104 ml/min; Glucose* 120 mg/dL (60-115)
[2025-02-24 10:24] LABS: TSH With Reflex to FT4* 2.840 uIU/mL (0.270-4.200)
== END 2025-02-24 11:51 | disposition home or self-care (01) ==
PROVIDERS: Emergency Provider Emergency Medicine; PCP Family Medicine
DX: R00.2 Palpitations (principal)
CPT/HCPCS: 36415; 80048; 83735; 84443; 84484; 85025; 93005; 93246; 99283; 99284